=== PATIENT | male | born 1955 | race Caucasian/White ===

== ENCOUNTER 2017-05-30 17:22 | Inpatient (IN) | payer SELFPAY ==
[~2017-05-30] VITALS: Ht 172.7 cm; Wt 78.9 kg
[2017-05-30 17:36] VITALS: BP 162/76
--- NOTE | 2017-05-30 17:42 | NUR ---
Patient ambulated to bed 5 with family. RN evaluating patient at bedside.
--- NOTE | 2017-05-30 17:43 | NUR ---
62 M BIB FRIEND ALOC WITH UNKNOWN LAST KNOWN WELL; ACCORDING TO FRIEND OF PT, PT WAS FOUIND ALOC AT 1700 TODAY AT HOME; PER FRIEND, PT WAS FOUND CLUTCHING HIS CHEST AND WAS CONFUSED; UNKNOWN MEDICAL HX; PT LIVES AT HOME ALONE; PT UNABLE TO ANSWER QUESTIONS APPRIOPRIATING; GCS=14; NO INJURIES NOTED TO HEAD OR TRAUMA NOTED; RR ARE EVEN AND UNLABORED; NAD; WILL CONTINUE TO MONITOR
--- NOTE | 2017-05-30 17:46 | NUR ---
Called code brain.
--- NOTE | 2017-05-30 17:48 | NUR ---
Patient taken to CT scan via gurney by john, accompanied by RN.
--- NOTE | 2017-05-30 18:15 | NUR ---
PT RETURNED FROM CT VIA [facility] WITH RN AND STATISTICS MANAGER
[2017-05-30 18:24] LABS: BASOPHILS # (AUTO) 0.2 K/uL (0.00-0.22); BASOPHILS % (AUTO) 2.4 % (0.0-2.0); EOSINOPHILS # (AUTO) 0.1 K/uL (0-0.4); EOSINOPHILS % (AUTO) 0.7 % (0.0-4.0); HEMATOCRIT 54.4 % (36-52); LYMPHOCYTES # (AUTO) 1.3 K/uL (2.0-11.5); LYMPHOCYTES % (AUTO) 14.7 % (20.5-51.1); MEAN CORPUSCULAR HEMOGLOBIN 30 pg (27-31); MEAN CORPUSCULAR HGB CONC 33 g/dL (33-37); MEAN CORPUSCULAR VOLUME 89 fL (80-94); MONOCYTES # (AUTO) 0.6 K/uL (0.8-1.0); MONOCYTES % (AUTO) 7.2 % (1.7-9.3); NEUTROPHILS # (AUTO) 6.4 K/uL (1.8-7.7); PLATELET COUNT (AUTO) 207 K/uL (140-450); RED BLOOD CELL COUNT(AUTO) 6.11 MIL/uL (4.20-6.10); RED CELL DISTRIBUTION WIDTH 12.6 % (11.6-13.7); WHITE BLOOD COUNT (AUTO) 8.6 K/uL (4.8-10.8)
[2017-05-30 18:41] LABS: ANION GAP 12.8 (8-16); CARBON DIOXIDE 25.2 mmol/L (21-32); CREATININE 1.2 mg/dL (0.7-1.3)
[2017-05-30 18:43] LABS: PROTHROMBIN TIME 10.8 secs (10.8-13.4)
[2017-05-30 18:47] LABS: ALBUMIN 3.8 g/dL (3.4-5.0); TOTAL BILIRUBIN 0.5 mg/dL (0.0-1.0)
[2017-05-30] MEDS ORDERED: ASPIRIN 325 MG TAB PO ONE (19:00)
[2017-05-30] MEDS ORDERED: NACL 0.9% 1,000 ML IV SCH (19:04)
[2017-05-30] MEDS ORDERED: HYDROcodone/APAP 7.5/325 MG 1 TAB PO PRN (19:05)
[2017-05-30] MEDS ORDERED: ONDANSETRON 4 MG/2 ML VIAL IVP PRN (19:05)
[2017-05-30] MEDS ORDERED: ACETAMINOPHEN 325 MG TAB PO PRN (19:05)
--- NOTE | 2017-05-30 19:16 | NUR ---
Patient will be admitted to care of DR. YEE. Admited to TELE[employer]RY Will go to [id number]. Belongings list completed.
--- NOTE | 2017-05-30 19:22 | NUR ---
Pt report given to Esther JAIMES. Transfer of care at this time.
--- NOTE | 2017-05-30 19:34 | NUR ---
REPORT GIVEN TO VAMSI JAIMES.
[2017-05-30 19:40] VITALS: BP 138/69
--- NOTE | 2017-05-30 19:40 | NUR ---
PATIENT ADMITTED TO THE UNIT FROM ER. PATIENT IS AWAKE AND ALERT, BUT CONFUSED. NO SIGNS AND SYMPTOMS OF DISTRESS NOTED. NO COMPLAINTS OF PAIN AT THIS TIME. VITAL SIGNS WITHIN NORMAL LIMITS. PATIENT IS [place] SPEAKING. PATIENT'S NEIGHBOR PRESESNT AT BEDSIDE. IV SITE NOTED ON RIGHT AC, INTACT AND PATENT. BED IN LOWEST POSITION, SIDE RAILS UP AND CALL LIGHT WITHIN REACH. WILL CONTINUE TO MONITOR.
[2017-05-30 19:44] LABS: CHOL/HDL RATIO 6.5 (1-4.5); FREE T4 (FREE THYROXINE) 0.91 ng/dL (0.76-1.46); MAGNESIUM 1.8 mg/dL (1.8-2.4); PHOSPHORUS 3.3 mg/dL (2.5-4.9); THYROID STIMULATING HORMONE 1.76 uIU/mL (0.34-3.74)
--- NOTE | 2017-05-30 19:45 | NUR ---
[employer] PHONE USED TO TRANSLATE AND SPEAK TO PATIENT IN PORTUG[place]E. PIN NUMBER FOR WELT [employer]WER: [id number]. SPOKE WITH PATIENT CONCERNING PLAN OF CARE. DR. SEAMAN VISITED PATIENT AND USED [employer] PHONE WELL TO SPEAK WITH PATIENT. PATIENT VERBALIZED UNDERSTANDING BUT REINFORCEMENT NEEDED.
--- NOTE | 2017-05-30 19:46 | NUR ---
WHILE USING [employer] PHONE, PATIENT KEPT TRYING TO PUT THE PHONE DOWN. I TRIED TO EXPLAIN THAT THE PHONE IS NEEDED TO HELP WITH TRANSLATION.
--- NOTE | 2017-05-30 20:00 | NUR ---
PATIENT REFUSED TO REMOVE SHOES
[2017-05-30] MEDS ORDERED: DOCUSATE SODIUM 100 MG GELCAP PO SCH (21:00)
--- NOTE | 2017-05-30 21:30 | NUR ---
PATIENT'S CLOSE FAMILY FRIENDS AT BEDSIDE, VANNESA AND DAUGHTER FRANSISCA. FRIENDS HAVE KNOWN PATIENT FOR 26 YEARS AND ANSWERED SOME QUESTIONS ABOUT PATIENT'S HEALTH HISTORY. PATIENT STILL CONFUSED AND COULD NOT RECALL MEDICAL HISTORY TO VERIFY.
[2017-05-30] MEDS ORDERED: LORazepam 1 MG TAB PO SCH (22:05)
[2017-05-31] VITALS: BP 136/68
--- NOTE | 2017-05-31 | NUR ---
CHECKED ON PATIENT, PATIENT IS ASLEEP. NO SIGNS AND SYMPTOMS OF DISTRESS NOTED. BED IN LOWEST POSITION. SIDE RAILS UP AND CALL LIGHT WITHIN REACH.
[2017-05-31 02:07] LABS: HEMOGLOBIN 17.5 g/dL (12.0-18.0); MEAN CORPUSCULAR HEMOGLOBIN 30 pg (27-31)
[2017-05-31 02:09] LABS: HEMATOCRIT 53.3 % (36-52); MEAN CORPUSCULAR HGB CONC 33 g/dL (33-37); MEAN CORPUSCULAR VOLUME 91 fL (80-94); PLATELET COUNT (AUTO) 190 K/uL (140-450); RED BLOOD CELL COUNT(AUTO) 5.89 MIL/uL (4.20-6.10); RED CELL DISTRIBUTION WIDTH 12.6 % (11.6-13.7); WHITE BLOOD COUNT (AUTO) 10.1 K/uL (4.8-10.8)
[2017-05-31 02:18] LABS: ANION GAP 11.3 (8-16); CARBON DIOXIDE 27.5 mmol/L (21-32); CREATININE 1.1 mg/dL (0.7-1.3); POTASSIUM 3.8 mmol/L (3.5-5.1)
[2017-05-31 02:19] LABS: LYMPHOCYTES % (MANUAL) 23 % (20-46); MONOCYTES % (MANUAL) 4 % (5-12)
[2017-05-31 02:22] LABS: MAGNESIUM 1.6 mg/dL (1.8-2.4); PHOSPHORUS 3.9 mg/dL (2.5-4.9)
--- NOTE | 2017-05-31 03:32 | NUR ---
NOTIFIED DR. SEAMAN OF PATIENT'S MAGNESIUM LEVEL OF 1.6 Addendum: 05/31/17 at 0728 by Kenisha Case RN STATED THAT MAGNESIUM SHOULD BE REPLENISHED BY EATING BREAKFAST SINCE THE PATIENT HAS NOT EATEN
[2017-05-31 04:00] VITALS: BP 148/78
--- NOTE | 2017-05-31 07:15 | NUR ---
CHECKED ON PATIENT. PATIENT WAS DRESSED IN REGULAR [address]RE[address] CLOTHES. TRIED TO REORIENT PATIENT TO HAVE HIM AT LEAST STAY AND TALK TO THE DOCTOR, SINCE HE WAS STILL CONFUSED. MORNING NURSE PRESENT. DR. GARZA SHOWED UP AND SPOKE WITH PATIENT. PATIENT VERBALIZED UNDERSTANDING.
--- NOTE | 2017-05-31 07:29 | NUR ---
PATIENT REPORT GIVEN TO MORNING NURSE. PATIENT IS IN STABLE CONDITION.
--- NOTE | 2017-05-31 07:30 | NUR ---
WHILE RECEIVING PT REPORT FROM NIGHT NURSE PT IS SITTING UP AAOX4 CITIZ[place] OF [place] SPEAKER AND SAYS IN [place] " I WAS TOLD I ONLY NEEDED TO BE HERE UNTIL 0700 AM." PT WAS EXPLAINED POC BY [facility]PE AND I TRANSLATED WELL AT DR GARZA CAME IN TO ADVISE PT OF HIS CONDITION WHEN COMING INTO THE HOSPITAL AND IT WOULD BE IN HIS BEST INTEREST TO STAY. HOWEVER, PT WAS EXPLAINED HE HAS THE RIGHT NOT MAKE HIS OWN MEDICAL DECISIONS IF HE CHOOSES TO DECIDED TO LEAVE. DR GARZA EXPLAINED THE BENEFITS OF STAYING AT THE HOSPITAL AND THE POSSIBLE OUTCOMES IF HE CHOOSES TO SIGN AMA. PT STATES "I FEEL FINE AND I WANT TO LEAVE, I DON'T NEED TO BE HERE." PT WILL BE GIVEN AMA FORMS FOR HIM TO SIGN.
--- NOTE | 2017-05-31 07:45 | NUR ---
SPOKE WITH FRANSISCA [phone] REGARDING TRANSPORTATION FOR PT. PT SPOKE WITH FRANSISCA AND VERIFIED SHE WILL BY AT THE HOSPITAL TO PICK HIM UP IN 20 MIN.
--- NOTE | 2017-05-31 07:50 | NUR ---
PT SIGNED AMA. PT IV WAS DISCONTINUE WITH CANNULA INTACT. TELE BOX REMOVED. PT AMB OFF UNIT WITH RN PRESENT AT SIDE. PT AMB WITH STEADY GAIT. PT LEFT UNIT IN STABLE CONDITION.
[2017-05-31] MEDS ORDERED: ATORVASTATIN 20 MG TAB PO SCH (09:00)
[2017-05-31] MEDS ORDERED: ASPIRIN 81 MG TAB.CHEW PO SCH (09:00)
== END 2017-05-31 07:55 | disposition left against medical advice (07) | DRG 74 ==
LOC: MED 17:22 → MTU 19:16
PROVIDERS: ADMIT Family Medicine Sports Medicine; ATTEND Family Medicine Sports Medicine
DX: G90.9 Disorder of the autonomic nervous system, unspecified (principal); E78.00 Pure hypercholesterolemia, unspecified; E78.5 Hyperlipidemia, unspecified; Z53.21 Procedure and treatment not carried out due to patient leaving prior to being seen by health care provider; I25.2 Old myocardial infarction
CPT/HCPCS: 36415; 70450; 71010; 80048; 80053; 82140; 82150; 83036; 83690; 83735; 83880; 84100; 84439; 84443; 84484; 85025; 85610; 85730; 86886; 86900; 86901; 87081; 93005; 93880; 99285; G0482; J7030; Q0092